=== PATIENT | male | born 1985 | race Caucasian/White ===

== ENCOUNTER 2018-01-11 09:00 | Inpatient (IN) | payer MEDICAID ==
[~2018-01-11] VITALS: Ht 167.6 cm; Wt 86.8 kg
--- NOTE | ~2018-01-11 | EC ---
PATIENT:ZOFIA VARMA DATE OF SERVICE: 01/11/18 SEX: M MEDICAL RECORD: [id number] DATE OF : [birth year] LOCATION:D.M2 D.213 AGE OF PATIENT: 32 ADMISSION DATE: 01/11/18 REFERRING PHYSICIAN: INTERPRETING PHYSICIAN: JANIS MADRIGAL MD ECHOCARDIOGRAM REPORT ECHO CHARGES 4 ECHO COMPLETE CLINICAL DIAGNOSIS: CHF ECHOCARDIOGRAPHIC MEASUREMENTS (adult normal given) AC root (d.<3.7cm) 3.5 cm LV Septum d (<1.2 cm> 1.2 cm Valve Excursion 1.7 cm LV Septum (systole) 1.4 cm Left Atria (s.<4.0cm> 5.4 cm LVPW d(<1.2cm) 1.3 cm RV (d.<2.3cm) 6.0 cm LVPW (sytole) 1.6 cm LV diastole(<5.6CM) 8.0 cm MV E-F(>70mm/sec) cm LV systole 7.3 cm LVOT Diameter 2.2 cm MV exc.(>10mm) 2.4 cm Est.ejection fraction (50-75%) % Pericardial Effusion Y DOPPLER: LVIT cm/sec A 48.0 cm/sec E 114 cm/sec LA cm/sec RVSP 48 mmHg LVOT 70 cm/sec AOP1/2T m/s Asc. Ao 109 cm/sec RVOT 54 cm/sec RA cm/sec PA 90 cm/sec AV Gradient Peak 4.79 mmHg AV Mean 2.51 mmHg AV Area 2.7 cm MV Gradient Peak 7.45 mmHg MV Mean 2.94 mmHg MV Area cm COMMENTS: Box Tender: Cassidy CATES Animal Damage Control Agent: 1 Dr. Madrigal TAPE# PACS DATE OF SERVICE: 01/12/2018 PROCEDURE: Echocardiogram. FINDINGS: 1. Left ventricle chamber size is dilated. Left ventricular systolic function is markedly reduced, overall ejection fraction estimated 20%. 2. Left atrium is enlarged at 5.4 cm. Right atrium and right ventricle chamber sizes are as well dilated giving 4-chamber dilatation. 3. Valvular structures have normal structure and motion. ECHOCARDIOGRAM REPORT [id number] ZOFIA VARMA 4. Doppler interrogation reveals severe mitral regurgitation, severe tricuspid regurgitation, no other valvular insufficiency or stenosis. Pulmonary systolic pressure is elevated estimated at 48 mmHg. 5. No evidence of pericardial effusion or left ventricular thrombus. TRANSINT:[id number] Voice Confirmation ID: [id number] DOCUMENT ID: [id number] JANIS MADRIGAL MD at 1148 CC: [id number] DICTATION DATE: 01/13/18 1023 [employer]ER: 01/13/18 1033 DIS IN 01/18/18 [place] [id number] [place] [id number]
[2018-01-11 10:48] LABS: BASOPHILS 0.4 % (0-2); HEMATOCRIT 36.2 % (42.0-54.0); HEMOGLOBIN 11.3 g/dL (13.5-17.5); IMMATURE GRANULOCYTES 0.1 % (0-5); LYMPHOCYTES 36.7 % (15-50); MCH 27.8 pg (26.0-34.0); MCHC 31.2 g/dL (31.0-37.0); MCV 89.2 fL (80.0-100.0); MEAN PLATELET VOLUME 11.5 fL (7.4-10.4); MONOCYTES 6.8 % (2-11); PLATELET COUNT 214 10x3/uL (130-400); RBC 4.06 10x6/uL (4.20-6.10); RDW 15.9 % (11.5-14.5); WBC 7.3 10x3/uL (4.8-10.8)
[2018-01-11 10:50] LABS: COLOR STRAW (YELLOW)
[2018-01-11 10:51] LABS: APPEARANCE CLEAR (CLEAR); BILIRUBIN NEGATIVE (NEGATIVE); GLUCOSE NEGATIVE (NEGATIVE); KETONE NEGATIVE (NEGATIVE); NITRITE NEGATIVE (NEGATIVE); PROTEIN NEGATIVE (NEGATIVE); UROBILINOGEN NORMAL (NORMAL)
[2018-01-11 11:15] LABS: ALBUMIN 3.3 g/dL (3.4-5.0); ALKALINE PHOSPHATASE 100 U/L (46-116); ALT (SGPT) 173 U/L (10-68); CALC OSMOLALITY 283 mosm/kg (275-300); CALCIUM 8.1 mg/dL (8.5-10.1); CARBON DIOXIDE 27.3 mmol/L (21.0-32.0); CHLORIDE - SERUM 102 mmol/L (98-107); GLUCOSE 126 mg/dL (74-106); POTASSIUM - SERUM 3.6 mmol/L (3.5-5.1); PROTEIN - SERUM 6.3 g/dL (6.4-8.2); SODIUM 140 mmol/L (136-145); UREA NITROGEN 21 mg/dL (7-18); eGFR NON AFRICAN AMERICAN > 90 mL/min (90-120)
[2018-01-11 11:23] LABS: CREATINE KINASE 83 UL (21-232); PRO BNP 1309 pg/mL (0-125); TROPONIN-I 0.018 ng/mL (0.000-0.060)
[2018-01-11 19:00] VITALS: BP 80/44
[2018-01-11 20:08] VITALS: BP 116/81; BMI 31.2
[2018-01-12] MEDS ORDERED: COREG 3.1253.125 MG PO
[2018-01-12] MEDS ORDERED: ALDACTONE25 MG PO
[2018-01-12] MEDS ORDERED: LASIX40 MG PO (00:01)
[2018-01-12] MEDS ORDERED: LISINOPRIL10 MG PO (00:01)
[2018-01-12] MEDS ORDERED: REGLAN10 MG PO (00:01)
[2018-01-12] MEDS ORDERED: PEPCID AC20 MG PO (00:01)
[2018-01-12] MEDS ORDERED: INDOCIN25 MG PO (00:03)
[2018-01-12] MEDS ORDERED: OMEPRAZOLE40 MG PO (02:27)
[2018-01-12 04:00] VITALS: BP 103/50
[2018-01-12 04:15] LABS: BASOPHILS 0.4 % (0-2); EOSINOPHILS 3.2 % (0-7); HEMATOCRIT 34.6 % (42.0-54.0); HEMOGLOBIN 10.8 g/dL (13.5-17.5); IMMATURE GRANULOCYTES 0.1 % (0-5); MCH 27.9 pg (26.0-34.0); MCHC 31.2 g/dL (31.0-37.0); MCV 89.4 fL (80.0-100.0); MEAN PLATELET VOLUME 10.7 fL (7.4-10.4); MONOCYTES 6.3 % (2-11); PLATELET COUNT 230 10x3/uL (130-400); RBC 3.87 10x6/uL (4.20-6.10); WBC 7.2 10x3/uL (4.8-10.8)
[2018-01-12 04:37] LABS: ANION GAP 11.7 mmol/L (8-16); BILIRUBIN - TOTAL 0.79 mg/dL (0.2-1.3); CALCIUM 8.1 mg/dL (8.5-10.1); CARBON DIOXIDE 27.8 mmol/L (21.0-32.0); POTASSIUM - SERUM 3.5 mmol/L (3.5-5.1); PROTEIN - SERUM 5.7 g/dL (6.4-8.2)
[2018-01-12 04:39] LABS: CREATININE - SERUM 1.3 mg/dL (0.6-1.3)
[2018-01-12 08:02] VITALS: BP 104/58
[2018-01-12 11:10] VITALS: BP 104/79
[2018-01-12 12:08] VITALS: Ht 167.6 cm; Wt 86.8 kg
[2018-01-12 12:54] LABS: MAGNESIUM - SERUM 1.5 mg/dL (1.8-2.4)
[2018-01-12 13:37] LABS: % SATURATION 6 % (15-55); IRON 33 ug/dl (35-150); TOTAL IRON BIND CAPACITY 501 ug/dl (260-445)
[2018-01-12 13:39] LABS: UNSAT IRON BIND CAPACITY 468 ug/dl (150-375)
[2018-01-12 13:59] LABS: UDS - AMPHET NEGATIVE QUAL (NEGATIVE); UDS - BARB NEGATIVE QUAL (NEGATIVE); UDS - BENZO NEGATIVE QUAL (NEGATIVE); UDS - COCAINE NEGATIVE QUAL (NEGATIVE); UDS - OPIATE NEGATIVE QUAL (NEGATIVE); UDS - PCP NEGATIVE QUAL (NEGATIVE); UDS - THC NEGATIVE QUAL (NEGATIVE)
[2018-01-12 15:38] VITALS: BP 154/44
[2018-01-12 21:47] VITALS: BP 104/69
[2018-01-13 01:54] VITALS: BP 109/72
[2018-01-13 05:53] VITALS: BP 110/66
[2018-01-13 06:12] LABS: ALBUMIN 3.2 g/dL (3.4-5.0); ANION GAP 12.1 mmol/L (8-16); BILIRUBIN - TOTAL 0.87 mg/dL (0.2-1.3); CALCIUM 8.5 mg/dL (8.5-10.1); CHOL - HDL RATIO 2.7 ratio (2.3-4.9); CREATININE - SERUM 1.2 mg/dL (0.6-1.3); LDL-HDL RATIO 1.4 ratio (1.5-3.5)
[2018-01-13 06:22] LABS: POTASSIUM - SERUM 4.1 mmol/L (3.5-5.1)
[2018-01-13 08:11] VITALS: BP 108/70
[2018-01-13 08:19] LABS: FOLATE (FOLIC ACID) - SERUM 17.2 ng/mL (>3.0)
[2018-01-13 11:44] VITALS: BP 112/66
[2018-01-13 15:23] LABS: HEPATITIS C ANTIBODY <0.1 (0.0-0.9)
[2018-01-13 15:24] VITALS: BP 122/71
[2018-01-13 19:00] VITALS: BP 101/37
[2018-01-14 04:52] VITALS: BP 106/62
[2018-01-14 05:47] LABS: ALBUMIN 3.2 g/dL (3.4-5.0); ANION GAP 11.7 mmol/L (8-16); BILIRUBIN - TOTAL 0.4 mg/dL (0.2-1.3); CALCIUM 7.9 mg/dL (8.5-10.1); CARBON DIOXIDE 28.3 mmol/L (21.0-32.0); CREATININE - SERUM 1.3 mg/dL (0.6-1.3); PROTEIN - SERUM 5.9 g/dL (6.4-8.2)
[2018-01-14 08:19] VITALS: BP 112/65
[2018-01-14 11:32] VITALS: BP 118/60
[2018-01-14 15:44] VITALS: BP 123/64
[2018-01-14 20:53] VITALS: BP 95/64
[2018-01-15 02:35] VITALS: BP 128/91
[2018-01-15 05:38] LABS: BASOPHILS 0.5 % (0-2); EOSINOPHILS 5.1 % (0-7); HEMATOCRIT 35.3 % (42.0-54.0); HEMOGLOBIN 10.8 g/dL (13.5-17.5); IMMATURE GRANULOCYTES 0.2 % (0-5); LYMPHOCYTES 43.6 % (15-50); MCH 27.4 pg (26.0-34.0); MCHC 30.6 g/dL (31.0-37.0); MCV 89.6 fL (80.0-100.0); MEAN PLATELET VOLUME 10.8 fL (7.4-10.4); MONOCYTES 7.5 % (2-11); NEUTROPHILS 43.1 % (40-80); PLATELET COUNT 214 10x3/uL (130-400); RBC 3.94 10x6/uL (4.20-6.10); RDW 16.4 % (11.5-14.5); WBC 5.9 10x3/uL (4.8-10.8)
[2018-01-15 06:08] VITALS: BP 115/71
[2018-01-15 06:09] LABS: ALBUMIN 3.3 g/dL (3.4-5.0); ANION GAP 11.9 mmol/L (8-16); BILIRUBIN - TOTAL 0.55 mg/dL (0.2-1.3); CALCIUM 8.7 mg/dL (8.5-10.1); CARBON DIOXIDE 32.3 mmol/L (21.0-32.0); CREATININE - SERUM 1.3 mg/dL (0.6-1.3); POTASSIUM - SERUM 4.2 mmol/L (3.5-5.1); PROTEIN - SERUM 6.5 g/dL (6.4-8.2)
[2018-01-15 07:00] LABS: PROTEIN - URINE 43.8 mg/dL (0.0-11.9)
[2018-01-15 07:51] VITALS: BP 123/75
[2018-01-15 15:30] VITALS: BP 138/66
[2018-01-15 19:00] VITALS: BP 120/68
[2018-01-16 04:00] VITALS: BP 95/67
[2018-01-16 06:59] LABS: BASOPHILS 0.3 % (0-2); EOSINOPHILS 5.8 % (0-7); HEMATOCRIT 33.5 % (42.0-54.0); HEMOGLOBIN 10.3 g/dL (13.5-17.5); IMMATURE GRANULOCYTES 0.3 % (0-5); LYMPHOCYTES 31.8 % (15-50); MCH 27.6 pg (26.0-34.0); MCHC 30.7 g/dL (31.0-37.0); MCV 89.8 fL (80.0-100.0); MEAN PLATELET VOLUME 10.8 fL (7.4-10.4); MONOCYTES 12.3 % (2-11); NEUTROPHILS 49.5 % (40-80); PLATELET COUNT 203 10x3/uL (130-400); RBC 3.73 10x6/uL (4.20-6.10); RDW 16.8 % (11.5-14.5); WBC 6.2 10x3/uL (4.8-10.8)
[2018-01-16 07:30] LABS: ALBUMIN 3.1 g/dL (3.4-5.0); ALKALINE PHOSPHATASE 118 U/L (46-116); ALT (SGPT) 92 U/L (10-68); BILIRUBIN - TOTAL 0.38 mg/dL (0.2-1.3); CALC OSMOLALITY 276 mosm/kg (275-300); CALCIUM 8.7 mg/dL (8.5-10.1); CARBON DIOXIDE 30.9 mmol/L (21.0-32.0); CHLORIDE - SERUM 98 mmol/L (98-107); CREATININE - SERUM 1.1 mg/dL (0.6-1.3); GLUCOSE 85 mg/dL (74-106); POTASSIUM - SERUM 4.4 mmol/L (3.5-5.1); PROTEIN - SERUM 6.1 g/dL (6.4-8.2); SODIUM 137 mmol/L (136-145); eGFR NON AFRICAN AMERICAN 81 mL/min (90-120)
[2018-01-16 07:34] LABS: UREA NITROGEN 23 mg/dL (7-18)
[2018-01-16 09:50] VITALS: BP 100/72
[2018-01-16 12:15] VITALS: BP 103/65
[2018-01-16 15:58] VITALS: BP 107/73
[2018-01-16 20:40] VITALS: BP 112/75
[2018-01-17 00:15] VITALS: BP 113/59
[2018-01-17 05:09] VITALS: BP 103/69
[2018-01-17 07:41] VITALS: BP 102/67
[2018-01-17 08:07] LABS: ALBUMIN 3.2 g/dL (3.4-5.0); ALKALINE PHOSPHATASE 104 U/L (46-116); ALT (SGPT) 85 U/L (10-68); BILIRUBIN - TOTAL 0.46 mg/dL (0.2-1.3); CALC OSMOLALITY 270 mosm/kg (275-300); CALCIUM 8.7 mg/dL (8.5-10.1); CARBON DIOXIDE 31.1 mmol/L (21.0-32.0); CHLORIDE - SERUM 97 mmol/L (98-107); CREATININE - SERUM 1.1 mg/dL (0.6-1.3); GLUCOSE 106 mg/dL (74-106); POTASSIUM - SERUM 4.2 mmol/L (3.5-5.1); PROTEIN - SERUM 6.5 g/dL (6.4-8.2); SODIUM 135 mmol/L (136-145); UREA NITROGEN 16 mg/dL (7-18); eGFR NON AFRICAN AMERICAN 81 mL/min (90-120)
[2018-01-17 11:37] VITALS: BP 97/61
[2018-01-17 15:49] VITALS: BP 106/71
[2018-01-17 20:58] VITALS: BP 112/78
[2018-01-18 01:12] VITALS: BP 103/72
[2018-01-18 05:58] VITALS: BP 109/72
[2018-01-18 06:49] LABS: BASOPHILS 0.3 % (0-2); EOSINOPHILS 7.8 % (0-7); HEMATOCRIT 35.4 % (42.0-54.0); IMMATURE GRANULOCYTES 0.3 % (0-5); MCH 27.8 pg (26.0-34.0); MCHC 31.1 g/dL (31.0-37.0); MCV 89.4 fL (80.0-100.0); MEAN PLATELET VOLUME 11.2 fL (7.4-10.4); MONOCYTES 7.2 % (2-11); NEUTROPHILS 49.4 % (40-80); PLATELET COUNT 173 10x3/uL (130-400); RBC 3.96 10x6/uL (4.20-6.10); RDW 17.3 % (11.5-14.5); WBC 6.3 10x3/uL (4.8-10.8)
[2018-01-18 06:51] LABS: CALC OSMOLALITY 269 mosm/kg (275-300); CARBON DIOXIDE 29.8 mmol/L (21.0-32.0); CHLORIDE - SERUM 96 mmol/L (98-107); GLUCOSE 110 mg/dL (74-106); POTASSIUM - SERUM 4.1 mmol/L (3.5-5.1); SODIUM 133 mmol/L (136-145); UREA NITROGEN 20 mg/dL (7-18); eGFR NON AFRICAN AMERICAN > 90 mL/min (90-120)
[2018-01-18 08:01] VITALS: BP 112/82
[2018-01-18 11:27] VITALS: BP 115/80
[2018-01-18 16:10] VITALS: BP 122/86
[2018-01-18] MEDS ORDERED: ALDACTONE50 MG PO (17:12)
[2018-01-18] MEDS ORDERED: COREG 3.1253.125 MG PO (17:56)
[2018-01-18] MEDS ORDERED: LISINOPRIL10 MG PO (17:56)
[2018-01-18] MEDS ORDERED: LASIX40 MG PO (17:57)
[2018-01-18] MEDS ORDERED: PEPCID AC20 MG PO (17:58)
[2018-01-18] MEDS ORDERED: OMEPRAZOLE40 MG PO (18:04)
== END 2018-01-18 19:44 | disposition home or self-care (01) | DRG 291 ==
LOC: D.ER 09:00 → D.M2 15:46
PROVIDERS: Family Medicine; Internal Medicine Nephrology
DX: I11.0 Hypertensive heart disease with heart failure (principal); J18.9 Pneumonia, unspecified organism; J98.11 Atelectasis; N17.9 Acute kidney failure, unspecified; R18.8 Other ascites; I50.23 Acute on chronic systolic (congestive) heart failure; I48.91 Unspecified atrial fibrillation; F10.10 Alcohol abuse, uncomplicated; Z72.0 Tobacco use; K59.00 Constipation, unspecified; F41.9 Anxiety disorder, unspecified; I42.9 Cardiomyopathy, unspecified; E83.42 Hypomagnesemia; R33.9 Retention of urine, unspecified

== ENCOUNTER 2018-01-29 15:11 | Emergency (ER) | payer MEDICAID ==
[2018-01-12 12:08] VITALS: BMI 31.2
[~2018-01-29 15:11] MED LIST: ALDACTONE25 MG PO; ALDACTONE50 MG PO; COREG 3.1253.125 MG PO; INDOCIN25 MG PO; LASIX40 MG PO; LISINOPRIL10 MG PO; OMEPRAZOLE40 MG PO; PEPCID AC20 MG PO; REGLAN10 MG PO
[2018-01-29 16:07] LABS: BASOPHILS 0.6 % (0-2); EOSINOPHILS 4.5 % (0-7); HEMATOCRIT 41.5 % (42.0-54.0); HEMOGLOBIN 13.1 g/dL (13.5-17.5); IMMATURE GRANULOCYTES 0.2 % (0-5); LYMPHOCYTES 44.8 % (15-50); MCH 28.8 pg (26.0-34.0); MCHC 31.6 g/dL (31.0-37.0); MCV 91.2 fL (80.0-100.0); MEAN PLATELET VOLUME 11.9 fL (7.4-10.4); MONOCYTES 5.2 % (2-11); NEUTROPHILS 44.7 % (40-80); RBC 4.55 10x6/uL (4.20-6.10); RDW 18.3 % (11.5-14.5); WBC 6.4 10x3/uL (4.8-10.8)
[2018-01-29 16:08] LABS: PLATELET COUNT 238 10x3/uL (130-400)
[2018-01-29 16:24] LABS: APTT 25.8 SECONDS (22.8-39.4); INR 1.59 (0.85-1.17); PROTIME 18.5 SECONDS (11.6-15.0)
[2018-01-29 17:54] LABS: ALBUMIN 3.7 g/dL (3.4-5.0); ALKALINE PHOSPHATASE 87 U/L (46-116); ALT (SGPT) 63 U/L (10-68); BILIRUBIN - TOTAL 1.56 mg/dL (0.2-1.3); CALC OSMOLALITY 279 mosm/kg (275-300); CARBON DIOXIDE 25.6 mmol/L (21.0-32.0); CHLORIDE - SERUM 104 mmol/L (98-107); CREATININE - SERUM 1.1 mg/dL (0.6-1.3); GLUCOSE 98 mg/dL (74-106); POTASSIUM - SERUM 4.6 mmol/L (3.5-5.1); PROTEIN - SERUM 7.1 g/dL (6.4-8.2); SODIUM 139 mmol/L (136-145); UREA NITROGEN 18 mg/dL (7-18); eGFR NON AFRICAN AMERICAN 81 mL/min (90-120)
[2018-01-29 22:02] LABS: AMYLASE - SERUM 44 U/L (25-115); LIPASE 119 U/L (73-393)
[2018-02-02 06:13] LABS: HEPATITIS C ANTIBODY <0.1 (0.0-0.9)
== END 2018-01-29 23:00 | disposition home or self-care (01) ==
LOC: D.ER 15:11
PROVIDERS: Emergency Medicine; Physician Assistant Medical
DX: K59.00 Constipation, unspecified (principal)